=== PATIENT | female | born 1990 | race African-American/Black ===

== ENCOUNTER 2019-09-28 12:28 | Emergency (ER) | payer MEDICAID ==
[~2019-09-28] VITALS: Ht 177.8 cm; Wt 90.7 kg
[2019-09-28 12:45] VITALS: BP 111/65
--- NOTE | 2019-09-28 12:45 | NUR ---
29/F TO EMERGENCY DEPT IN CUSTODY FOR OKAY TO BOOK DUE TO . PT STATES LMP 06/06/19. . DENIES ANY MEDICAL COMPLAINT OR ANY PAIN. OFFICER AT CHAIRSIDE. IN CHAIR FOR MSE.
--- NOTE | 2019-09-28 14:37 | NUR ---
Patient discharged with v/s stable. Written and verbal after care instructions given and explained. Patient verbalized understanding. Police with in custody. All questions addressed prior to discharge. Advised to follow up with PMD.
--- NOTE | 2019-09-28 14:37 | NUR ---
PATIENT BIB [place] [employer] DEPT. PATIENT EXAMINED BY DR. CORBIN. PATIENT MEDICALLY CLEARED AND RELEASED IN CUSTODY IN STABLE CONDITION. ORIGINAL PRE-BOOK FORM GIVEN TO OFFICER #[id number].
[2019-09-28 14:41] VITALS: BP 115/71
== END 2019-09-28 14:37 | disposition home or self-care (01) ==
LOC: MED 12:28
DX: Z34.91 Encounter for supervision of normal pregnancy, unspecified, first trimester (principal); Z02.9 Encounter for administrative examinations, unspecified; Z98.890 Other specified postprocedural states
CPT/HCPCS: 99283